=== PATIENT | female | born 1965 | race African-American/Black ===

== ENCOUNTER 2018-05-14 12:34 | Emergency (ER) | payer OTHER ==
[2018-05-14 12:55] VITALS: BP 144/85; PULSE 72; TEMP 98.6; BMI 27.0
--- NOTE | 2018-05-14 13:51 | PDOC ---
History of Present Illness - General Chief Complaint: Pain Stated Complaint: RT ARM PAIN Time Seen by Provider: 05/14/18 12:58 History Source: Patient Exam Limitations: No Limitations - History of Present Illness Initial Comments: 05/14/18 13:48 52 yr female states she has a lump to her right upper arm "for many years" and thinks an insulin needle may be stuck in there. Pt noticed more swelling. no redness no drainage. Past History - Past Medical History Allergies/Adverse Reactions: Allergies Allergy/AdvReac Type Severity Reaction Status Date / Time No Known Allergies Allergy Verified 05/14/18 12:46 Home Medications: Ambulatory Orders Aspirin [ASA -] 81 mg PO DAILY 06/16/16 Metformin HCl 850 mg PO BID 06/16/16 Ramipril 10 mg PO DAILY 06/16/16 COPD: No Diabetes: Yes HTN: Yes - Suicide/Smoking/Psychosocial Hx Smoking History: Former smoker Have you smoked in the past 12 months: No If you are a former smoker, when did you quit?: 2013 Information on smoking cessation initiated: No Hx Alcohol Use: No Drug/Substance Use Hx: No Substance Use Type: None Review of Systems - Review of Systems Able to Perform ROS?: Yes Is the patient limited Setswana proficient: No Integumentary: Yes: Symptoms Reported *Physical Exam - Vital Signs Last Vital Signs Temp Pulse Resp BP Pulse Ox 98.6 F 72 16 144/85 05/14/18 12:45 05/14/18 12:45 05/14/18 12:45 05/14/18 12:45 - Physical Exam General Appearance: Yes: Nourished, Appropriately Dressed HEENT: positive: EOMI, JAMEE Neck: positive: Supple Extremity: positive: Other (right upper outer arm with soft tissue swelling approximately 2cm no redness no drainage , tender to touch ) Neurologic: positive: Fully Oriented, Alert, Normal Mood/Affect, Normal Response , Motor Strength 5/5 ED Treatment Course - RADIOLOGY Radiology Studies Ordered: Category Date Time Status HUMERUS-RIGHT [RAD] Stat Radiology 05/14/18 13:32 Ordered Medical Decision Making - Medical Decision Making 05/14/18 13:49 cc: right upper arm swelling for many years will get xray r/o fb refer to plastic surgery and to dermatology *DC/Admit/Observation/Transfer Diagnosis at time of Disposition: Localized swelling, mass and lump, right upper limb - Discharge Dispostion Disposition: HOME Condition at time of disposition: Good - Referrals Referrals: Ghada Camp MD [Staff Physician] - Eric Turner MD [Staff Physician] - - Patient Instructions Additional Instructions: follow with the supervisory forester or the plastic surgeon to have further evaluation no evidence of a metal object on the xray - Post Discharge Activity
== END 2018-05-14 14:35 | disposition home or self-care (01) ==
LOC: JERFT 12:34
DX: M79.89 Other specified soft tissue disorders (principal); R22.31 Localized swelling, mass and lump, right upper limb; I10 Essential (primary) hypertension; E11.9 Type 2 diabetes mellitus without complications; Z87.891 Personal history of nicotine dependence
CPT/HCPCS: 73060-TC-RT-FY; 82962; 99281-25

== ENCOUNTER 2018-11-13 08:47 | Emergency (ER) | payer OTHER ==
[2018-11-13 08:55] VITALS: BP 140/77; PULSE 60; TEMP 97.8; BMI 27.3
--- NOTE | 2018-11-13 09:31 | PDOC ---
Attending Attestation - HPI HPI: 11/13/18 09:33 The patient is a 53 year old female, with a significant past medical history of htn, diabetes, anxiety, and opioid abuse, who presents to the emergency department with headache for about 1.5 weeks. She states the headaches started as intermittent, however, states the headaches have been consistent for the past few days. She reports recent blurred vision which comes and goes. She states she has taken ibuprofen for her headache, however, states she falls asleep after so is unsure if the ibuprofen offered any pain relief. The patient denies chest pain, shortness of breath, and dizziness. The patient denies fever, chills, nausea, vomit, diarrhea and constipation. The patient denies dysuria, frequency, urgency and hematuria. Allergies: NKDA <Zmazam Thomas - Last Filed: 11/13/18 09:33> - Resident Resident Name: Wendy Gavin - ED Attending Attestation I have performed the following: I have examined & evaluated the patient, The case was reviewed & discussed with the resident, I agree w/resident's findings & plan, Exceptions are as noted - Physicial Exam PE: GENERAL: Awake, alert, and fully oriented, in no acute distress HEAD: No signs of trauma EYES: PERRLA, EOMI, sclera anicteric, conjunctiva clear ENT: Auricles normal inspection, hearing grossly normal, nares patent, oropharynx clear without exudates. Moist mucosa NECK: Normal ROM, supple, no lymphadenopathy, JVD, or masses LUNGS: Breath sounds equal, clear to auscultation bilaterally. No wheezes, and no crackles HEART: Regular rate and rhythm, normal S1 and S2, no murmurs, rubs or gallops ABDOMEN: Soft, nontender, normoactive bowel sounds. No guarding, no rebound. No masses EXTREMITIES: Normal range of motion, no edema. No clubbing or cyanosis. No cords, erythema, or tenderness NEUROLOGICAL: Cranial nerves II through XII grossly intact. Normal speech, normal gait. Motor and sensation intact SKIN: Warm, Dry, normal turgor, no rashes or lesions noted. - Medical Decision Making Pt presents with recent onset headache, improving with ibuprofen, but then returns when she wakes up (she usually sleeps after the ibuprofen). She does not typically have headaches and became concerned because strokes run in her family. Associated with blurred vision. No acute findings on CTH. She improved with medication in the ED. Stable for DC home. <Domi Mike - Last Filed: 11/13/18 15:26>
[2018-11-13] MEDS ORDERED: KETOROLAC TROMETHAMINE 30 MG/1 ML VIAL IVPUSH ONE (09:43)
[2018-11-13] MEDS ORDERED: SODIUM CHLORIDE 1,000 ML IV SCH (09:45)
--- NOTE | 2018-11-13 09:54 | PDOC ---
History of Present Illness - General Chief Complaint: Headache Stated Complaint: SEVERE HEADACHE Time Seen by Provider: 11/13/18 09:05 - History of Present Illness Initial Comments: 11/13/18 09:46 Patient is a 53 y/o female with a history of HTN, DM, anxiety, and opioid addiction who is here for headaches. She states the headache began about a week and a half ago and has been on and off. She wakes up with the headache. She states she has tried to take ibuprofen to help but shes not sure if it does because it just makes her sleepy and she falls asleep. The pain is on the top of her head. She reports with it she has had blurry vision. These symptoms are new and she has never had them before. She recently was at a rehab program to help her opioid addiction. She was on Zoloft and Tertraline for two weeks, after finishing the pills is around the time her headaches began. She has a family history of mother and sister with a stroke. She has never had these symptoms before. She denies nausea, diarrhea, fever, chest pain, or shortness of breath. Past History - Past Medical History Allergies/Adverse Reactions: Allergies Allergy/AdvReac Type Severity Reaction Status Date / Time No Known Allergies Allergy Verified 11/13/18 08:50 Home Medications: Ambulatory Orders Aspirin [ASA -] 81 mg PO DAILY 06/16/16 Ramipril 10 mg PO DAILY 06/16/16 metFORMIN HCL [Metformin HCl] 850 mg PO BID 06/16/16 Gabapentin 600 mg PO DAILY 11/13/18 COPD: No Diabetes: Yes HTN: Yes - Suicide/Smoking/Psychosocial Hx Smoking History: Former smoker Have you smoked in the past 12 months: No If you are a former smoker, when did you quit?: 2014 Information on smoking cessation initiated: No Hx Alcohol Use: No Drug/Substance Use Hx: Yes Substance Use Type: None Review of Systems - Review of Systems Constitutional: No: Chills, Fever HEENTM: Yes: Eye Pain, Recent change in vision Respiratory: No: Cough, Shortness of Breath ABD/GI: No: Diarrhea, Nausea, Vomiting : No: Dysuria Musculoskeletal: No: Muscle Weakness Neurological: Yes: Headache. No: Numbness, Tingling *Physical Exam - Vital Signs Last Vital Signs Temp Pulse Resp BP Pulse Ox 97.8 F 60 18 140/77 100 11/13/18 08:50 11/13/18 08:50 11/13/18 08:50 11/13/18 08:50 11/13/18 08:50 - Physical Exam Comments: 11/13/18 09:55 GENERAL: A&O x3, no acute distress EYES: PERRLA, EOMI HEART: RRR, no murmurs rubs or gallops LUNGS: CTAL B/L ABD: soft, non tender, non distended NEURO: CN II-XII intact, gait normal, sensation intact 5/5 strength diffusely EXTREMITIES: no pitting edema SKIN: no rashes or lesions noted Moderate Sedation - Procedure Monitoring Vital Signs: Procedure Monitoring Vital Signs Temperature 97.8 F 11/13/18 08:50 Pulse Rate 60 11/13/18 08:50 Respiratory Rate 18 11/13/18 08:50 Blood Pressure 140/77 11/13/18 08:50 O2 Sat by Pulse Oximetry (%) 100 11/13/18 08:50 ED Treatment Course - LABORATORY CBC & Chemistry Diagram: 11/13/18 10:10 11/13/18 10:10 - ADDITIONAL ORDERS Additional order review: Laboratory Results 11/13/18 09:38 POC Glucometer 86 11/13/18 09:38 POC Glucometer 86 Medical Decision Making - Medical Decision Making 11/13/18 09:57 f/u head CT, labs, toradol for headache 11/13/18 11:49 CT negative, labs WNL, dispo home *DC/Admit/Observation/Transfer Diagnosis at time of Disposition: Headache Qualifiers: Headache type: unspecified Headache chronicity pattern: unspecified pattern Intractability: not intractable Qualified Code(s): R51 - Headache - Discharge Dispostion Disposition: HOME Condition at time of disposition: Improved - Referrals - Patient Instructions Printed Discharge Instructions: DI for Headache Additional Instructions: You came to the Emergency Department for a headache. We did imaging of your head and it did not show any abnormalities. We took blood and also did not find any abnormalities. For the pain please take: Tylenol or Motrin every four hours as needed, do not exceed the maximum dose as stated on the bottle. Please make an appointment to follow up with your Primary Care Physician. Return tot he emergency room if you have dizziness, nausea, vomiting, chest pain , slurred speech, or shortness of breath. - Post Discharge Activity
[2018-11-13] MEDS ORDERED: KETOROLAC TROMETHAMINE 30 MG/1 ML VIAL ONE (09:56)
[2018-11-13 10:27] LABS: HEMATOCRIT 38.8 % (32.4-45.2); HEMOGLOBIN 13.2 GM/dL (10.7-15.3); MCHC 33.9 g/dl (32.0-36.0); MEAN CELL VOLUME 88.3 fl (80-96); PLATELET COUNT 153 K/MM3 (134-434); RBC 4.39 M/mm3 (3.60-5.2); RDW 13.6 % (11.6-15.6); WHITE BLOOD COUNT 6.3 K/mm3 (4.0-10.0)
[2018-11-13 11:45] LABS: ALBUMIN 3.5 g/dl (3.4-5.0); ALK PHOS 92 U/L (45-117); ANION GAP 8 MMOL/L (8-16); BILIRUBIN,TOTAL 0.3 mg/dL (0.2-1); BLOOD UREA NITROGEN 14 mg/dL (7-18); CALCIUM 8.9 mg/dL (8.5-10.1); CHLORIDE 107 mmol/L (98-107); CO2 26 mmol/L (21-32); CREATININE 1.1 mg/dL (0.55-1.3); GLUCOSE,RANDOM 84 mg/dL (74-106); POTASSIUM 4.2 mmol/L (3.5-5.1); SGOT/AST 21 U/L (15-37); SGPT/ALT 34 U/L (13-61); SODIUM 141 mmol/L (136-145); TOT PROT 6.8 g/dl (6.4-8.2)
== END 2018-11-13 12:14 | disposition home or self-care (01) ==
LOC: JER 08:47
PROC: 3E0333Z Introduction of Anti-inflammatory into Peripheral Vein, Percutaneous Approach (ICD-10-PCS; principal; 2018-11-13)
PROC: 3E0337Z Introduction of Electrolytic and Water Balance Substance into Peripheral Vein, Percutaneous Approach (ICD-10-PCS; 2018-11-13)
DX: R51 Headache (principal)
CPT/HCPCS: 36415; 70450-TC; 80053; 82962; 85027; 96361; 96374; 99282-25; J7030

== ENCOUNTER 2019-01-09 09:36 | Emergency (ER) | payer OTHER ==
[2019-01-09 09:42] VITALS: BP 113/74; PULSE 90; TEMP 98.2; BMI 29.0
--- NOTE | 2019-01-09 09:50 | PDOC ---
History of Present Illness - General Chief Complaint: Blood Sugar Problem Stated Complaint: DIZZNESS/ BLOOD SUGAR PROBLEM Time Seen by Provider: 01/09/19 09:47 History Source: Patient Exam Limitations: No Limitations - History of Present Illness Initial Comments: 01/09/19 09:50 PMH: PSH: Meds: ALL: Social: FH: ROS GENERAL/CONSTITUTIONAL: No: fever, chills, weakness, loss of appetite. HEAD, EYES, EARS, NOSE AND THROAT: No: change in vision, ear pain, discharge, sore throat, throat swelling. CARDIOVASCULAR: No: chest pain, lightheadedness, palpitations, syncope RESPIRATORY: No: cough, shortness of breath, wheezing, hemoptysis, stridor. GASTROINTESTINAL: No: nausea, vomiting, diarrhea, abdominal cramping, rectal bleeding, constipation. GENITOURINARY: No: dysuria, hematuria, frequency, urgency, flank pain. MUSCULOSKELETAL: No: back pain, neck pain, joint pain, muscle swelling or pain SKIN AND BREASTS: No: lesions, pallor, rash or easy bruising. NEUROLOGIC: No: headache, vertigo, paresthesias, weakness ENDOCRINE: No: unexplained weight gain or loss HEMATOLOGIC/LYMPHATIC: No: anemia, easy bleeding, swelling nodes. PE GENERAL: The patient is in no acute distress. HEAD: Normal with no signs of trauma. EYES: PERRLA, EOMI, sclera anicteric, conjunctiva clear. ENT: Ears normal, nares patent, oropharynx clear without exudates. Moist mucous membranes. NECK: Normal range of motion, supple without lymphadenopathy, JVD, or masses. LUNGS: Breath sounds equal, clear to auscultation bilaterally. No wheezes, and no crackles. HEART:Regular rate and rhythm, normal S1 and S2 without murmur, rub or gallop. ABDOMEN: Soft, nontender, normoactive bowel sounds. No guarding, no rebound. No masses palpable. EXTREMITIES: Normal range of motion, no edema. No clubbing or cyanosis. No erythema, or tenderness. NEUROLOGICAL: Cranial nerves II through XII grossly intact. Normal speech. No focal neurological deficits. MUSCULOSKELETAL: Back non-tender to palpation, no CVA tenderness SKIN: Warm, Dry, normal turgor, no rashes or lesions noted. Past History - Past Medical History Allergies/Adverse Reactions: Allergies Allergy/AdvReac Type Severity Reaction Status Date / Time No Known Allergies Allergy Verified 11/13/18 08:50 Home Medications: Ambulatory Orders Aspirin [ASA -] 81 mg PO DAILY 06/16/16 Ramipril 10 mg PO DAILY 06/16/16 metFORMIN HCL [Metformin HCl] 850 mg PO BID 06/16/16 Gabapentin 600 mg PO DAILY 11/13/18 COPD: No Diabetes: Yes HTN: Yes - Immunization History Immunization Up to Date: No - Suicide/Smoking/Psychosocial Hx Smoking History: Never smoked Have you smoked in the past 12 months: No If you are a former smoker, when did you quit?: 2014 Information on smoking cessation initiated: No Hx Alcohol Use: No Drug/Substance Use Hx: No Substance Use Type: None *Physical Exam - Vital Signs Last Vital Signs Temp Pulse Resp BP Pulse Ox 98.2 F 90 18 113/74 100 01/09/19 09:37 01/09/19 09:37 01/09/19 09:37 01/09/19 09:37 01/09/19 09:37 *DC/Admit/Observation/Transfer - Discharge Dispostion Condition at time of disposition: Stable - Referrals - Patient Instructions - Post Discharge Activity
--- NOTE | 2019-01-09 11:24 | PDOC ---
History of Present Illness - General Chief Complaint: Blood Sugar Problem Stated Complaint: DIZZNESS/ BLOOD SUGAR PROBLEM Time Seen by Provider: 01/09/19 09:47 History Source: Patient Exam Limitations: No Limitations - History of Present Illness Initial Comments: 01/09/19 10:37 53 yo female pmh HTN, DM, opioid abuse presents to the ED with elevated BS. Pt states she has been a NIDD for 4 years on metformin which recently has not worked for her. Sugars average in the 130s at home but last month has increaed into the 200s. Pt saw PCP 01/07, stopped metformin and is now on a gliptan medication but noted BS in the 300s this am. Pt admits to recent increased thirst, appetite and urination along with fatigue but denies F/C/N/V, BERG, CP, SOB, abdominal pain. Past History - Past Medical History Allergies/Adverse Reactions: Allergies Allergy/AdvReac Type Severity Reaction Status Date / Time No Known Allergies Allergy Verified 01/09/19 10:20 Home Medications: Ambulatory Orders Aspirin [ASA -] 81 mg PO DAILY 06/16/16 Ramipril 10 mg PO DAILY 06/16/16 Gabapentin 600 mg PO DAILY 11/13/18 Empagliflozin [Jardiance] 25 mg PO DAILY 01/09/19 Linagliptin [Tradjenta] 5 mg PO DAILY #3 tablet 01/09/19 COPD: No Diabetes: Yes HTN: Yes - Immunization History Immunization Up to Date: No - Suicide/Smoking/Psychosocial Hx Smoking History: Never smoked Have you smoked in the past 12 months: No If you are a former smoker, when did you quit?: 2014 Information on smoking cessation initiated: No Hx Alcohol Use: No Drug/Substance Use Hx: No Substance Use Type: None *Physical Exam - Vital Signs Last Vital Signs Temp Pulse Resp BP Pulse Ox 98.2 F 90 18 113/74 100 01/09/19 09:37 01/09/19 09:37 01/09/19 09:37 01/09/19 09:37 01/09/19 09:37 ED Treatment Course - ADDITIONAL ORDERS Additional order review: Laboratory Results 01/09/19 10:11 POC Glucometer 149 01/09/19 10:11 POC Glucometer 149 *DC/Admit/Observation/Transfer Diagnosis at time of Disposition: Elevated blood sugar - Discharge Dispostion Disposition: HOME Condition at time of disposition: Stable - Prescriptions Prescriptions: Linagliptin [Tradjenta] 5 mg PO DAILY #3 tablet - Referrals - Patient Instructions Printed Discharge Instructions: DI for Hyperglycemia -- Adult, Low Glycemic Index Diets (Alternative Therapy) Additional Instructions: Please go to your Primary Doctors office Friday for an appointment, they are expecting you. Take the medication Trajenta 1 time daily until you have your appointment and wait for further instructions. Return to the ER for new or concerning symptoms including but not limited to: inability to eat or drink, high fevers, lethargy. Thank you - Post Discharge Activity
--- NOTE | 2019-01-09 11:51 | PDOC ---
Documentation entered by Holley Espinosa SCRIBE, acting as scribe for Nora Soler MD. Nora Soler MD: This documentation has been prepared by the Jesús nath Collisia, SCRIBE, under my direction and personally reviewed by me in its entirety. I confirm that the documentation accurately reflects all work, treatment, procedures, and medical decision making performed by me. Attending Attestation - Resident Resident Name: Adriel Tapia - ED Attending Attestation I have performed the following: I have examined & evaluated the patient, The case was reviewed & discussed with the resident, I agree w/resident's findings & plan, Exceptions are as noted - HPI HPI: 01/09/19 11:12 The patient is a 53 year old female with a significant past medical history of hypertension, diabetes (Type 2 for 4 years), anxiety and opioid abuse who presents to the emergency department with increased blood pressure reading this morning. The patient states that she was at home in bed after waking up when she measured her blood pressure to be 330. The patient states that her medication was recently changed from Metformin to Flozan and she has noticed that her blood pressure readings have been increasing for the past 2 days since starting the new meds. The patient reports some associated increased appetite, thirst and urinary frequency. She states that she did not eat this morning and states that she is unsure of what she should be eating secondary to most foods causing her sugar to elevate. The patient denies any other symptoms. She denies any fever, chills, nausea, vomiting, diarrhea, constipation, chest pain, shortness of breath, headache or dizziness. She denies any other complaints. - Physicial Exam PE: 01/09/19 09:51 GENERAL: The patient is in no acute distress. ENT: Ears normal, nares patent, oropharynx clear without exudates. Moist mucous membranes. NECK: Normal range of motion, supple LUNGS: Breath sounds equal, clear to auscultation bilaterally. No wheezes, and no crackles. HEART:Regular rate and rhythm, normal S1 and S2 without murmur, rub or gallop. ABDOMEN: Soft, nontender, normoactive bowel sounds. EXTREMITIES: Normal range of motion, no edema. NEUROLOGICAL: Cranial nerves II through XII grossly intact. Normal speech. No focal neurological deficits. SKIN: Warm, Dry, normal turgor, no rashes or lesions noted. 01/09/19 11:28 - Medical Decision Making 01/09/19 11:28 53 yo F h/o DM previously well controlled on Metformin Recently, the metformin has not controlled her blood glucose Pt seen by PMD who started new medication (Janumet) Pt blood glucose 300 prior to eating In the ER, BG 149 will plan to discharge after conversation with PMD (?consider starting new po medication) Pt counselled to avoid refined carbohydrates 01/09/19 14:[address] Gay and case discussed at 11:08am 01/09/19 18:10 Will adjust pt medications Follow up with PMD
== END 2019-01-09 12:34 | disposition home or self-care (01) ==
LOC: JER 09:36
DX: Z79.84 Long term (current) use of oral hypoglycemic drugs (principal); I10 Essential (primary) hypertension
CPT/HCPCS: 82962; 99282-25

== ENCOUNTER 2020-10-04 13:05 | Inpatient (IN) | payer OTHER ==
[2020-10-04] MEDS ORDERED: DEXAMETHASONE 4 MG TABLET (FP) PO ONE (14:45)
[2020-10-04] MEDS ORDERED: DEXAMETHASONE 4 MG TABLET (FP) ONE (14:57)
[2020-10-04 15:22] LABS: BASO % 0.2 % (0-2.0); EOS % 0.9 % (0-4.5); HEMATOCRIT 39.6 % (32.4-45.2); HEMOGLOBIN 12.9 GM/dL (10.7-15.3); LYMPH % 29.6 % (8-40); MCH 27.7 pg (25.7-33.7); MCHC 32.6 g/dl (32.0-36.0); MONO % 7.2 % (3.8-10.2); NEUT % 62.1 % (42.8-82.8); PLATELET COUNT 136 K/MM3 (134-434); RBC 4.66 M/mm3 (3.60-5.2); WHITE BLOOD COUNT 3.8 K/mm3 (4.0-10.0)
[2020-10-04 16:33] LABS: CHLORIDE 106 mmol/L (98-107); POTASSIUM 3.8 mmol/L (3.5-5.1); SODIUM 140 mmol/L (136-145)
[2020-10-04 16:35] LABS: CALCIUM 8.7 mg/dL (8.5-10.1)
[2020-10-04 16:36] LABS: ALBUMIN 3.8 g/dl (3.4-5.0); ANION GAP 4 MMOL/L (8-16); BLOOD UREA NITROGEN 9.8 mg/dL (7-18); CO2 30 mmol/L (21-32); GLUCOSE,RANDOM 104 mg/dL (74-106)
[2020-10-04 16:39] LABS: CREATININE 0.9 mg/dL (0.55-1.3); SGOT/AST 21 U/L (15-37); SGPT/ALT 35 U/L (13-61)
[2020-10-04 16:41] LABS: BILIRUBIN,TOTAL 0.3 mg/dL (0.2-1); TOT PROT 7.5 g/dl (6.4-8.2)
[2020-10-04 16:42] LABS: ALK PHOS 97 U/L (45-117)
[2020-10-04 20:55] LABS: LDH 219 U/L (84-246)
[2020-10-04] MEDS ORDERED: ACETAMINOPHEN 325 MG TABLET (FP) PO PRN (21:59)
[2020-10-04] MEDS ORDERED: ATORVASTATIN CA 40 MG TABLET (FP) ONE (22:53)
[2020-10-04] MEDS ORDERED: ENOXAPARIN NA (PORCINE) 80 MG/0.8 ML DISP.SYRIN SQ ONE (22:54)
[2020-10-04] MEDS: ATORVASTATIN CA 40 MG TABLET (FP) PO SCH (23:01)
[2020-10-04] MEDS: ENOXAPARIN NA (PORCINE) 80 MG/0.8 ML DISP.SYRIN SQ SCH (23:01)
[2020-10-04] MEDS ORDERED: ALBUTEROL SO4 HFA INHALER IH PRN (23:10)
[2020-10-05] MEDS ORDERED: RAMIPRIL 5 MG CAPSULE PO SCH (00:45)
[2020-10-05] MEDS ORDERED: RAMIPRIL 5 MG CAPSULE ONE (01:40)
[2020-10-05] MEDS ORDERED: GABAPENTIN 300 MG CAPSULE PO ONE (05:20)
[2020-10-05] MEDS ORDERED: diphenhydrAMINE HCL 50 MG CAPSULE PO ONE (05:21)
[2020-10-05] MEDS ORDERED: diphenhydrAMINE HCL 25 MG CAPSULE (FP) PO ONE (05:23)
[2020-10-05] MEDS ORDERED: GABAPENTIN 100 MG CAPSULE ONE ×2 (05:23→13:37)
[2020-10-05 08:10] LABS: BASO % 0.2 % (0-2.0); HEMATOCRIT 37.8 % (32.4-45.2); HEMOGLOBIN 12.5 GM/dL (10.7-15.3); LYMPH % 22.2 % (8-40); MCH 27.6 pg (25.7-33.7); MEAN CELL VOLUME 83.7 fl (80-96); MEAN PLT VOLUME 9.2 fl (7.5-11.1); MONO % 6.9 % (3.8-10.2); NEUT % 70.7 % (42.8-82.8); PLATELET COUNT 157 K/MM3 (134-434); RBC 4.52 M/mm3 (3.60-5.2); RDW 13.7 % (11.6-15.6); WHITE BLOOD COUNT 4.3 K/mm3 (4.0-10.0)
[2020-10-05 08:27] LABS: POTASSIUM 3.7 mmol/L (3.5-5.1)
[2020-10-05 08:34] LABS: CALCIUM 8.7 mg/dL (8.5-10.1)
[2020-10-05 08:35] LABS: ALBUMIN 3.8 g/dl (3.4-5.0); BLOOD UREA NITROGEN 10.2 mg/dL (7-18)
[2020-10-05 08:38] LABS: CREATININE 0.8 mg/dL (0.55-1.3)
[2020-10-05 08:40] LABS: BILIRUBIN,TOTAL 0.9 mg/dL (0.2-1); TOT PROT 7.6 g/dl (6.4-8.2)
[2020-10-05] MEDS: INSULIN SLIDING SCALE (NOVOLOG) 1 VIAL SQ SCH ×4 (09:13→21:51)
[2020-10-05] MEDS ORDERED: ASCORBIC ACID 500 MG TABLET (FP) ONE (09:20)
[2020-10-05] MEDS ORDERED: ASPIRIN 81 MG CHEWABLE TABLETS ONE (09:21)
[2020-10-05] MEDS ORDERED: DEXAMETHASONE SOD PHOSPHATE 4 MG/1 ML VIAL ONE (09:21)
[2020-10-05] MEDS ORDERED: AZITHROMYCIN 250 MG TABLET ONE (09:21)
[2020-10-05] MEDS ORDERED: ZINC SULFATE 220 MG CAPSULE (FP) ONE (09:21)
[2020-10-05] MEDS ORDERED: CHOLECALCIFEROL (VIT D3) 1,000 UNIT (25 MCG) TABLET ONE (09:21)
[2020-10-05] MEDS ORDERED: metFORMIN HCL 500 MG TABLET (FP) ONE (09:21)
[2020-10-05] MEDS ORDERED: ENOXAPARIN NA (PORCINE) 80 MG/0.8 ML DISP.SYRIN SQ ONE (09:22)
[2020-10-05] MEDS ORDERED: PATIENT'S OWN MEDICATION (NON-FORMULARY) (Gabapentin [Gabapentin] 600 MG Tablet) PO SCH (10:00)
[2020-10-05] MEDS ORDERED: PATIENT'S OWN MEDICATION (NON-FORMULARY) (Empagliflozin [Jardiance] 25 MG Tablet) PO SCH (10:00)
[2020-10-05] MEDS: ENOXAPARIN NA (PORCINE) 80 MG/0.8 ML DISP.SYRIN SQ SCH ×2 (10:05→21:39)
[2020-10-05] MEDS: ASPIRIN 81 MG CHEWABLE TABLETS PO SCH (10:05)
[2020-10-05] MEDS: DEXAMETHASONE SOD PHOSPHATE 4 MG/1 ML VIAL IVPUSH SCH (10:05)
[2020-10-05] MEDS: ZINC SULFATE 220 MG CAPSULE (FP) PO SCH ×2 (10:06→21:39)
[2020-10-05] MEDS: CHOLECALCIFEROL (VIT D3) 1,000 UNIT (25 MCG) TABLET PO SCH (10:06)
[2020-10-05] MEDS: ASCORBIC ACID 500 MG TABLET (FP) PO SCH ×2 (10:06→21:39)
[2020-10-05] MEDS: metFORMIN HCL 500 MG TABLET (FP) PO SCH ×2 (10:06→21:39)
[2020-10-05] MEDS: AZITHROMYCIN 250 MG TABLET PO SCH (10:06)
[2020-10-05] MEDS: GABAPENTIN 300 MG CAPSULE PO SCH ×2 (13:45→21:39)
[2020-10-05 16:11] VITALS: BMI 28.8
[2020-10-05] MEDS ORDERED: REMDESIVIR 200 MG in SODIUM CHLORIDE 210 ML IVPB ONE (16:16)
[2020-10-05] MEDS ORDERED: INSULIN (LEVEMIR) 100 UNITS/ML UNITS SQ ONE (20:55)
[2020-10-05] MEDS: ATORVASTATIN CA 40 MG TABLET (FP) PO SCH (21:39)
[2020-10-06] MEDS: diphenhydrAMINE HCL 25 MG CAPSULE (FP) PO PRN ×2 (00:27→21:13)
[2020-10-06] MEDS: INSULIN SLIDING SCALE (NOVOLOG) 1 VIAL SQ SCH ×4 (06:23→21:20)
[2020-10-06 10:10] LABS: BASO % 0.2 % (0-2.0); EOS % 0.1 % (0-4.5); HEMATOCRIT 40.1 % (32.4-45.2); HEMOGLOBIN 13.1 GM/dL (10.7-15.3); LYMPH % 26.8 % (8-40); MCH 27.6 pg (25.7-33.7); MCHC 32.7 g/dl (32.0-36.0); MEAN CELL VOLUME 84.4 fl (80-96); MEAN PLT VOLUME 9.3 fl (7.5-11.1); MONO % 5.9 % (3.8-10.2); PLATELET COUNT 174 K/MM3 (134-434); RBC 4.75 M/mm3 (3.60-5.2); RDW 14.1 % (11.6-15.6); WHITE BLOOD COUNT 5.8 K/mm3 (4.0-10.0)
[2020-10-06 10:41] LABS: CALCIUM 8.7 mg/dL (8.5-10.1)
[2020-10-06 10:43] LABS: ALBUMIN 3.9 g/dl (3.4-5.0); BLOOD UREA NITROGEN 14.6 mg/dL (7-18)
[2020-10-06 10:44] LABS: CREATININE 0.9 mg/dL (0.55-1.3)
[2020-10-06 10:46] LABS: TOT PROT 7.7 g/dl (6.4-8.2)
[2020-10-06 11:02] LABS: BILIRUBIN,TOTAL 0.4 mg/dL (0.2-1)
[2020-10-06] MEDS: ASCORBIC ACID 500 MG TABLET (FP) PO SCH ×2 (12:13→21:12)
[2020-10-06] MEDS: AZITHROMYCIN 250 MG TABLET PO SCH (12:13)
[2020-10-06] MEDS: CHOLECALCIFEROL (VIT D3) 1,000 UNIT (25 MCG) TABLET PO SCH (12:13)
[2020-10-06] MEDS: metFORMIN HCL 500 MG TABLET (FP) PO SCH ×2 (12:13→21:13)
[2020-10-06] MEDS: GABAPENTIN 300 MG CAPSULE PO SCH ×2 (12:14→21:13)
[2020-10-06] MEDS: ASPIRIN 81 MG CHEWABLE TABLETS PO SCH (12:14)
[2020-10-06] MEDS: DEXAMETHASONE SOD PHOSPHATE 4 MG/1 ML VIAL IVPUSH SCH (12:14)
[2020-10-06] MEDS: ZINC SULFATE 220 MG CAPSULE (FP) PO SCH ×2 (12:14→21:13)
[2020-10-06] MEDS: ENOXAPARIN NA (PORCINE) 80 MG/0.8 ML DISP.SYRIN SQ SCH (12:15)
[2020-10-06] MEDS: REMDESIVIR 100 MG in SODIUM CHLORIDE 230 ML IVPB SCH (16:49)
[2020-10-06] MEDS: ATORVASTATIN CA 40 MG TABLET (FP) PO SCH (21:13)
[2020-10-07] MEDS: INSULIN SLIDING SCALE (NOVOLOG) 1 VIAL SQ SCH ×4 (06:11→21:50)
[2020-10-07] MEDS: metFORMIN HCL 500 MG TABLET (FP) PO SCH ×2 (09:01→22:35)
[2020-10-07] MEDS: ASCORBIC ACID 500 MG TABLET (FP) PO SCH ×2 (09:01→22:35)
[2020-10-07] MEDS: GABAPENTIN 300 MG CAPSULE PO SCH ×2 (09:01→22:35)
[2020-10-07] MEDS: CHOLECALCIFEROL (VIT D3) 1,000 UNIT (25 MCG) TABLET PO SCH (09:01)
[2020-10-07] MEDS: AZITHROMYCIN 250 MG TABLET PO SCH (09:01)
[2020-10-07] MEDS: ASPIRIN 81 MG CHEWABLE TABLETS PO SCH (09:01)
[2020-10-07] MEDS: ZINC SULFATE 220 MG CAPSULE (FP) PO SCH ×2 (09:01→22:35)
[2020-10-07] MEDS: ENOXAPARIN NA (PORCINE) 40 MG/0.4 ML DISP.SYRIN SQ SCH (09:02)
[2020-10-07] MEDS: DEXAMETHASONE SOD PHOSPHATE 4 MG/1 ML VIAL IVPUSH SCH (10:37)
[2020-10-07] MEDS: REMDESIVIR 100 MG in SODIUM CHLORIDE 230 ML IVPB SCH (10:38)
[2020-10-07 12:43] LABS: BASO % 0.4 % (0-2.0); EOS % 0.1 % (0-4.5); HEMATOCRIT 39.4 % (32.4-45.2); HEMOGLOBIN 12.9 GM/dL (10.7-15.3); MCH 27.9 pg (25.7-33.7); MCHC 32.8 g/dl (32.0-36.0); MEAN CELL VOLUME 85.2 fl (80-96); MEAN PLT VOLUME 9.5 fl (7.5-11.1); MONO % 13.3 % (3.8-10.2); NEUT % 54.2 % (42.8-82.8); PLATELET COUNT 189 K/MM3 (134-434); RBC 4.62 M/mm3 (3.60-5.2); RDW 14.1 % (11.6-15.6); WHITE BLOOD COUNT 4.4 K/mm3 (4.0-10.0)
[2020-10-07 13:05] LABS: POTASSIUM 3.7 mmol/L (3.5-5.1)
[2020-10-07 13:17] LABS: ALBUMIN 3.6 g/dl (3.4-5.0); BLOOD UREA NITROGEN 15.6 mg/dL (7-18); CALCIUM 8.5 mg/dL (8.5-10.1)
[2020-10-07 13:18] LABS: BILIRUBIN,TOTAL 0.4 mg/dL (0.2-1); CREATININE 0.9 mg/dL (0.55-1.3); TOT PROT 7.3 g/dl (6.4-8.2)
[2020-10-07] MEDS: ATORVASTATIN CA 40 MG TABLET (FP) PO SCH (22:35)
[2020-10-07] MEDS: diphenhydrAMINE HCL 25 MG CAPSULE (FP) PO PRN (23:02)
[2020-10-08] MEDS: INSULIN SLIDING SCALE (NOVOLOG) 1 VIAL SQ SCH ×4 (06:05→23:10)
[2020-10-08] MEDS: ZINC SULFATE 220 MG CAPSULE (FP) PO SCH ×2 (10:00→23:09)
[2020-10-08] MEDS: GABAPENTIN 300 MG CAPSULE PO SCH ×2 (10:00→23:09)
[2020-10-08] MEDS: AZITHROMYCIN 250 MG TABLET PO SCH (10:01)
[2020-10-08] MEDS: metFORMIN HCL 500 MG TABLET (FP) PO SCH ×2 (10:01→23:09)
[2020-10-08] MEDS: REMDESIVIR 100 MG in SODIUM CHLORIDE 230 ML IVPB SCH (10:03)
[2020-10-08] MEDS: ASPIRIN 81 MG CHEWABLE TABLETS PO SCH (10:03)
[2020-10-08] MEDS: ASCORBIC ACID 500 MG TABLET (FP) PO SCH ×2 (10:03→23:09)
[2020-10-08] MEDS: CHOLECALCIFEROL (VIT D3) 1,000 UNIT (25 MCG) TABLET PO SCH (10:04)
[2020-10-08] MEDS: ENOXAPARIN NA (PORCINE) 40 MG/0.4 ML DISP.SYRIN SQ SCH (10:04)
[2020-10-08] MEDS: DEXAMETHASONE SOD PHOSPHATE 4 MG/1 ML VIAL IVPUSH SCH (10:04)
[2020-10-08] MEDS: ATORVASTATIN CA 40 MG TABLET (FP) PO SCH (23:09)
[2020-10-08] MEDS: diphenhydrAMINE HCL 25 MG CAPSULE (FP) PO PRN (23:13)
[2020-10-09] MEDS: INSULIN SLIDING SCALE (NOVOLOG) 1 VIAL SQ SCH ×3 (07:24→16:19)
[2020-10-09] MEDS: ZINC SULFATE 220 MG CAPSULE (FP) PO SCH (09:56)
[2020-10-09] MEDS: REMDESIVIR 100 MG in SODIUM CHLORIDE 230 ML IVPB SCH (09:56)
[2020-10-09] MEDS: ENOXAPARIN NA (PORCINE) 40 MG/0.4 ML DISP.SYRIN SQ SCH (09:56)
[2020-10-09] MEDS: ASPIRIN 81 MG CHEWABLE TABLETS PO SCH (09:57)
[2020-10-09] MEDS: AZITHROMYCIN 250 MG TABLET PO SCH (09:57)
[2020-10-09] MEDS: metFORMIN HCL 500 MG TABLET (FP) PO SCH (09:57)
[2020-10-09] MEDS: CHOLECALCIFEROL (VIT D3) 1,000 UNIT (25 MCG) TABLET PO SCH (09:57)
[2020-10-09] MEDS: GABAPENTIN 300 MG CAPSULE PO SCH (09:57)
[2020-10-09] MEDS: ASCORBIC ACID 500 MG TABLET (FP) PO SCH (09:57)
[2020-10-09] MEDS: DEXAMETHASONE SOD PHOSPHATE 4 MG/1 ML VIAL IVPUSH SCH (09:58)
[2020-10-09 15:43] VITALS: BP 101/55; PULSE 80; TEMP 99
== END 2020-10-09 15:30 | disposition home or self-care (01) | DRG 177 ==
LOC: JER 13:05 → JERBED 17:03 → J5S 10-05 14:47
PROVIDERS: ADMIT Internal Medicine; ATTEND Internal Medicine
PROC: XW033E5 Introduction of Remdesivir Anti-infective into Peripheral Vein, Percutaneous Approach, New Technology Group 5 (ICD-10-PCS; principal; 2020-10-05)
DX: U07.1 COVID-19 (principal); J12.82 Pneumonia due to coronavirus disease 2019; F11.20 Opioid dependence, uncomplicated; I10 Essential (primary) hypertension; E11.9 Type 2 diabetes mellitus without complications; F41.9 Anxiety disorder, unspecified; R09.02 Hypoxemia; R51.9 Headache, unspecified; E66.9 Obesity, unspecified; Z68.28 Body mass index [BMI] 28.0-28.9, adult; R53.83 Other fatigue
CPT/HCPCS: 36415; 71045-TC-FY; 80053; 82550; 82728; 82962; 83615; 84484; 85025; 85379; 86140; 86769; 93005; 93010; 94761; 99285-25; C9399; C9803; U0003

== ENCOUNTER 2022-12-23 11:27 | Emergency (ER) | payer OTHER ==
[2022-12-23 11:36] VITALS: BMI 30.6
[2022-12-23 15:55] VITALS: BP 125/68; PULSE 87; RESP 17; TEMP 98.2
== END 2022-12-23 14:38 | disposition home or self-care (01) ==
LOC: JER 11:27
PROC: 0H9BXZZ Drainage of Right Upper Arm Skin, External Approach (ICD-10-PCS; principal; 2022-12-23)
DX: L02.411 Cutaneous abscess of right axilla (principal); R42 Dizziness and giddiness
CPT/HCPCS: 99283-25

== ENCOUNTER 2023-06-13 04:32 | Day surgery (SDC) | payer OTHER ==
[2023-06-11 16:58] VITALS: BMI 29.2
[2023-06-13 07:09] VITALS: RESP 20
[2023-06-13] MEDS ORDERED: BUPIVACAINE HCL/PF 0.75% 10 ML VIAL ONE (07:16)
[2023-06-13] MEDS ORDERED: LIDOCAINE HCL/PF 1% SDV 5ML VIAL ONE (07:16)
[2023-06-13] MEDS ORDERED: BUPIVACAINE HCL/PF 0.75% 10 ML VIAL NR ONE (09:16)
[2023-06-13] MEDS ORDERED: LIDOCAINE 1% P/F 10 MG/ML VIAL INF ONE (09:16)
[2023-06-13 09:52] VITALS: BP 128/78; PULSE 75; TEMP 98.7
[2023-06-13] MEDS ORDERED: ACETAMINOPHEN 500 MG TABLET (FP) PO PRN (13:52)
== END 2023-06-13 10:23 | disposition home or self-care (01) ==
LOC: JASU-SURG 04:32
PROVIDERS: ATTEND Pain Medicine Pain Medicine
PROC: 3E0T33Z Introduction of Anti-inflammatory into Peripheral Nerves and Plexi, Percutaneous Approach (ICD-10-PCS; 2023-06-13)
PROC: 3E0T3BZ Introduction of Anesthetic Agent into Peripheral Nerves and Plexi, Percutaneous Approach (ICD-10-PCS; principal; 2023-06-13 08:45)
DX: M47.816 Spondylosis without myelopathy or radiculopathy, lumbar region (principal)
CPT/HCPCS: 76000-TC-FY

== ENCOUNTER → 2023-07-29 | Day surgery (SDC) | payer OTHER ==
[~2023-07-29] MED LIST: ACETAMINOPHEN 500 MG TABLET (FP) PO PRN; BUPIVACAINE HCL/PF 0.75% 10 ML VIAL ONE; LIDOCAINE HCL/PF 1% SDV 5ML VIAL ONE
== END | disposition home or self-care (01) ==
LOC: JASU-SURG 03:51
PROVIDERS: ATTEND Pain Medicine Pain Medicine
DX: Z53.8 Procedure and treatment not carried out for other reasons (principal)

== ENCOUNTER → 2023-08-01 | Day surgery (SDC) | payer OTHER ==
[2023-07-31 09:55] VITALS: BMI 29.2
[~2023-08-01] MED LIST changes: -ACETAMINOPHEN 500 MG TABLET (FP) PO PRN
== END | disposition home or self-care (01) ==
LOC: JASU-SURG 04:10
PROVIDERS: ATTEND Pain Medicine Pain Medicine
DX: Z53.8 Procedure and treatment not carried out for other reasons (principal)

== ENCOUNTER 2024-11-29 07:05 | Day surgery (SDC) | payer OTHER ==
[2024-11-16 15:16] VITALS: BMI 28.0
[2024-11-29] MEDS ORDERED: FENTANYL CITRATE/PF 50 MCG/ML VIAL ONE (07:20)
[2024-11-29] MEDS ORDERED: EPINEPHrine 1:1,000 1,000 MCG/ML ML ONE (07:21)
[2024-11-29] MEDS ORDERED: DEXAMETHASONE SOD PHOSPHATE 10 MG/1 ML VIAL ONE (07:21)
[2024-11-29] MEDS ORDERED: ROPIVACAINE HCL/PF 100 MG/20 ML VIAL ONE (07:21)
[2024-11-29] MEDS ORDERED: MIDAZOLAM HCL 2 MG/2 ML SINGLE DOSE VIAL ONE ×4 (07:21→09:08)
[2024-11-29] MEDS ORDERED: SUCCINYLCHOLINE CHLORIDE 200 MG/10 ML SYRINGE ONE (08:09)
[2024-11-29] MEDS ORDERED: PROPOFOL 20 ML ONE (08:09)
[2024-11-29] MEDS ORDERED: ONDANSETRON 4 MG/2 ML VIAL ONE ×2 (08:09→09:43)
[2024-11-29] MEDS ORDERED: BUPIVACAINE HCL/EPINEPHRINE/PF 30 ML VIAL IJ ONE (08:21)
[2024-11-29] MEDS ORDERED: ACETAMINOPHEN INJECTION 100 ML ONE (09:43)
[2024-11-29] MEDS ORDERED: ceFAZolin SODIUM 1 GM VIAL ONE (09:43)
[2024-11-29] MEDS ORDERED: ONDANSETRON 4 MG/2 ML VIAL IVPUSH PRN (09:56)
[2024-11-29] MEDS: oxyCODONE HCL 5 MG TABLET PO PRN (11:19)
[2024-11-29] MEDS ORDERED: oxyCODONE HCL 5 MG TABLET ONE (11:21)
[2024-11-29 12:56] VITALS: BP 101/65; PULSE 53; RESP 19; TEMP 97.9
== END 2024-11-29 12:15 | disposition home or self-care (01) ==
LOC: FASU 07:05
PROVIDERS: ATTEND Orthopaedic Surgery
PROC: 0LB14ZZ Excision of Right Shoulder Tendon, Percutaneous Endoscopic Approach (ICD-10-PCS; principal; 2024-11-29 08:33)
DX: S46.011A Strain of muscle(s) and tendon(s) of the rotator cuff of right shoulder, initial encounter (principal); S43.431A Superior glenoid labrum lesion of right shoulder, initial encounter; M75.21 Bicipital tendinitis, right shoulder; M75.51 Bursitis of right shoulder; M65.811 Other synovitis and tenosynovitis, right shoulder; M75.01 Adhesive capsulitis of right shoulder; X58.XXXA Exposure to other specified factors, initial encounter; Y92.9 Unspecified place or not applicable; Y93.9 Activity, unspecified
CPT/HCPCS: 29823; 29826; 29827; C1713; 82962; 94760; J0131; J1100